=== PATIENT | female | born 1965 | race Caucasian/White ===

== ENCOUNTER 2017-02-14 05:16 | Inpatient (IN) | payer OTHER ==
[~2017-02-14] VITALS: Ht 152.4 cm; Wt 75.8 kg
[~2017-02-14 05:16] MED LIST: IBUP800T PO; PSEU120T9 PO
[2017-02-14 06:17] LABS: HCG UR OBC PASS
[2017-02-14] MEDS ORDERED: BUPIVACAINE/PF 0.5% ONE (06:22)
[2017-02-14] MEDS ORDERED: THROMBIN 20,000 UNIT VIAL TP ONE (06:22)
[2017-02-14] MEDS ORDERED: BACITRACIN 50,000 UNIT ONE (06:23)
[2017-02-14] MEDS ORDERED: EPINEPHRINE 1 MG/ML, 1ML ONE (06:24)
[2017-02-14] MEDS ORDERED: LACTATED RINGERS 1,000 ML IV SCH (06:39)
[2017-02-14] MEDS ORDERED: OMEP20TA62 PO (06:41)
[2017-02-14] MEDS ORDERED: B-COMPLEX PO (06:41)
[2017-02-14] MEDS ORDERED: LIDOCAINE 1%, 2ML SQ PRN (07:00)
[2017-02-14 07:02] VITALS: BP 125/79
[2017-02-14 07:18] LABS: IS PT STATUS REG ER OR PRE ER? NO
== END 2017-02-14 07:15 | disposition home or self-care (01) | DRG 93 ==
LOC: ORIP 05:16
PROVIDERS: ADMIT Neurological Surgery; ATTEND Neurological Surgery
DX: G95.9 Disease of spinal cord, unspecified (principal)
CPT/HCPCS: 36415; 81025; 84484; 93005; J0171; J3490; J7120

== ENCOUNTER 2017-03-01 05:56 | Inpatient (IN) | payer OTHER ==
[~2017-03-01] VITALS: Ht 152.4 cm; Wt 83.5 kg
[~2017-03-01 05:56] MED LIST changes: +B-COMPLEX PO; +IBUP-1223 PO; -IBUP800T PO; +OMEP20TA62 PO
[2017-03-01] MEDS ORDERED: LACTATED RINGERS 1,000 ML IV SCH (06:40)
[2017-03-01] MEDS ORDERED: BACITRACIN 50,000 UNIT ONE (06:46)
[2017-03-01] MEDS ORDERED: BUPIVACAINE/PF 0.5% ONE (06:46)
[2017-03-01] MEDS ORDERED: THROMBIN 20,000 UNIT VIAL TP ONE (06:46)
[2017-03-01] MEDS ORDERED: EPINEPHRINE 1 MG/ML, 1ML ONE (06:46)
[2017-03-01 07:10] VITALS: BP 141/78
[2017-03-01 07:11] LABS: HCG UR OBC PASS
[2017-03-01] MEDS ORDERED: FENTANYL PF 100 MCG/2ML ONE ×3 (07:16→10:08)
[2017-03-01] MEDS ORDERED: MIDAZOLAM 1 MG/ML, 2ML ONE (07:16)
[2017-03-01] MEDS ORDERED: ONDANSETRON 2MG/ML, 2ML ONE (07:36)
[2017-03-01] MEDS ORDERED: DEXAMETHASONE 4 MG/ML, 1ML ONE (07:36)
[2017-03-01] MEDS ORDERED: CEFAZOLIN 1,000 MG ONE (07:36)
[2017-03-01] MEDS ORDERED: PROPOFOL 10 MG/ML, 50ML ONE (07:36)
[2017-03-01] MEDS ORDERED: PROPOFOL 10 MG/ML, 20ML ONE (07:36)
[2017-03-01] MEDS ORDERED: SUCCINYLCHOLINE 20 MG/ML, 10ML ONE (07:36)
[2017-03-01] MEDS ORDERED: HYDROmorphone 2 MG/ML, 1ML ONE (08:27)
[2017-03-01] MEDS ORDERED: hydrALAzine 20 MG/ML, 1ML IV PRN (08:30)
[2017-03-01] MEDS ORDERED: MEPERIDINE/PF 25MG/0.5ML IVPush PRN (08:30)
[2017-03-01] MEDS ORDERED: ONDANSETRON 2MG/ML, 2ML IVPush PRN (08:30)
[2017-03-01] MEDS ORDERED: MIDAZOLAM 1 MG/ML, 2ML IV PRN (08:30)
[2017-03-01] MEDS ORDERED: OXYcodone 5 MG/5 ML ORAL.SOL UDC PO PRN (08:30)
[2017-03-01] MEDS ORDERED: LABETALOL 5MG/ML, 20ML IV PRN ×2 (08:30→11:30)
[2017-03-01] MEDS ORDERED: PROMETHAZINE 25 MG/ML, 1ML IV PRN (08:30)
[2017-03-01] MEDS ORDERED: ALBUTEROL/IPRATROPIUM 2.5MG/0.5MG, 3 ML NPPB PRN (08:30)
[2017-03-01] MEDS ORDERED: ACETAMINOPHEN 325 MG TABLET PO PRN (08:30)
[2017-03-01] MEDS ORDERED: HYDROmorphone 1 MG/ML, 1ML IV PRN (08:30)
[2017-03-01] MEDS ORDERED: OXYcodone 5 MG/5 ML ORAL.SOL UDC ONE (10:08)
[2017-03-01] MEDS ORDERED: ACETAMINOPHEN 650 MG/20.3 ML UDC ONE (10:08)
[2017-03-01] MEDS: FENTANYL PF 100 MCG/2ML IV PRN ×2 (10:11→10:32)
[2017-03-01] MEDS ORDERED: BISACODYL 10 MG SUPP PR PRN (11:30)
[2017-03-01] MEDS ORDERED: PROMETHAZINE 25 MG/ML, 1ML IM PRN (11:30)
[2017-03-01] MEDS ORDERED: MAGNESIUM HYDROXIDE 8%, 30ML UDC PO PRN (11:30)
[2017-03-01] MEDS ORDERED: ONDANSETRON 2MG/ML, 2ML IV PRN (11:30)
[2017-03-01] MEDS: METHOCARBAMOL 750 MG TABLET PO PRN ×2 (11:57→20:29)
[2017-03-01] MEDS ORDERED: morphine SULFATE 10 MG/ML, 1ML IV PRN (12:00)
[2017-03-01 13:42] VITALS: BP 128/72
[2017-03-01] MEDS: DEXAMETHASONE 4 MG/ML, 1ML IV SCH ×2 (13:51→20:23)
[2017-03-01] MEDS: NS + 20MEQ KCL 1,000 ML IV SCH (13:51)
[2017-03-01] MEDS: HYDROcodone/APAP 10/325 MG TABLET PO PRN ×3 (13:51→23:33)
[2017-03-01] MEDS: CEFAZOLIN PMX 1GM/50ML 50 ML IVPB SCH ×2 (15:40→23:33)
[2017-03-01 22:23] VITALS: BP 116/72
[2017-03-02 00:48] VITALS: BP 123/81
[2017-03-02] MEDS: NS + 20MEQ KCL 1,000 ML IV SCH ×2 (02:11→14:06)
[2017-03-02] MEDS: DEXAMETHASONE 4 MG/ML, 1ML IV SCH ×4 (02:11→20:54)
[2017-03-02] MEDS ORDERED: SENN1TAB7 PO (04:05)
[2017-03-02] MEDS ORDERED: HYDR-3307 PO (04:06)
[2017-03-02] MEDS ORDERED: METH750T87 PO (04:07)
[2017-03-02] MEDS: METHOCARBAMOL 750 MG TABLET PO PRN ×3 (04:45→23:00)
[2017-03-02] MEDS: HYDROcodone/APAP 10/325 MG TABLET PO PRN ×5 (05:37→22:04)
[2017-03-02] MEDS: SENNA/DOCUSATE TABLET PO SCH (08:15)
[2017-03-02 08:20] VITALS: BP 113/56
[2017-03-02 14:30] VITALS: BP 111/62
[2017-03-02 20:18] VITALS: BP 148/75
[2017-03-03 02:05] VITALS: BP 115/62
[2017-03-03] MEDS: NS + 20MEQ KCL 1,000 ML IV SCH ×2 (02:09→10:01)
[2017-03-03] MEDS: DEXAMETHASONE 4 MG/ML, 1ML IV SCH ×2 (03:21→08:24)
[2017-03-03] MEDS: HYDROcodone/APAP 10/325 MG TABLET PO PRN ×3 (03:28→11:39)
[2017-03-03 08:00] VITALS: BP 130/84
[2017-03-03] MEDS: SENNA/DOCUSATE TABLET PO SCH (08:22)
[2017-03-03] MEDS ORDERED: HYDR-3307 PO (08:48)
[2017-03-03] MEDS ORDERED: METH4TAB2 PO (08:51)
[2017-03-03] MEDS ORDERED: CALC300T5 PO (08:52)
[2017-03-03] MEDS: METHOCARBAMOL 750 MG TABLET PO PRN (10:40)
[2017-03-03] MEDS ORDERED: PNEUMOCOCCAL 23 VACCINE IM-VACC ONE (11:00)
== END 2017-03-03 12:55 | disposition home or self-care (01) | DRG 473 ==
LOC: ORIP 05:56 → 4NOR 11:04 → DCLOUNGE 03-03 12:15
PROVIDERS: ADMIT Neurological Surgery; ATTEND Neurological Surgery
PROC: 00NW0ZZ Release Cervical Spinal Cord, Open Approach (ICD-10-PCS; 2017-03-01)
PROC: 0RB30ZZ Excision of Cervical Vertebral Disc, Open Approach (ICD-10-PCS; 2017-03-01)
PROC: 4A11X4G Monitoring of Peripheral Nervous Electrical Activity, Intraoperative, External Approach (ICD-10-PCS; 2017-03-01)
PROC: 0RG20A0 Fusion of 2 or more Cervical Vertebral Joints with Interbody Fusion Device, Anterior Approach, Anterior Column, Open Approach (ICD-10-PCS; principal; 2017-03-01 07:30)
DX: M48.02 Spinal stenosis, cervical region (principal); F17.210 Nicotine dependence, cigarettes, uncomplicated; M50.122 Cervical disc disorder at C5-C6 level with radiculopathy
CPT/HCPCS: 72040; 81025; 90732; C1713; J0171; J0690; J1100; J1170; J2250; J2405; J2704; J3010; J3480; J3490; J0330; J7120

== ENCOUNTER → 2018-10-04 | Outpatient (CLI) | payer OTHER ==
[~2018-10-04] MED LIST changes: +CALC300T5 PO; +HYDR-3307 PO; +METH4TAB2 PO; +METH750T87 PO; +SENN-177 PO
== END | disposition home or self-care (01) ==
LOC: CFH 10:48
PROVIDERS: ATTEND Obstetrics & Gynecology
DX: Z12.31 Encounter for screening mammogram for malignant neoplasm of breast (principal)
CPT/HCPCS: 77063; 77067

== ENCOUNTER → 2018-10-16 | Outpatient (CLI) | payer OTHER | END | disposition home or self-care (01) | LOC: CFH 10:13 | PROVIDERS: ATTEND Obstetrics & Gynecology | DX: N63.22 Unspecified lump in the left breast, upper inner quadrant (principal); F17.200 Nicotine dependence, unspecified, uncomplicated | CPT/HCPCS: 77065 ==